=== PATIENT | female | born 1990 | race Caucasian/White ===

== ENCOUNTER 2020-02-11 18:04 | Emergency (ER) | payer MEDICAID ==
[2020-02-11] MEDS ORDERED: PRENATAL MULTI1 EAC3 PO (18:18)
[2020-02-11 19:17] VITALS: BP 146/82
== END 2020-02-11 19:28 | disposition short-term general hospital (02) ==
LOC: ED 18:04
DX: O9A.213 Injury, poisoning and certain other consequences of external causes complicating pregnancy, third trimester (principal); R11.0 Nausea; Z3A.30 30 weeks gestation of pregnancy; V43.52XA Car driver injured in collision with other type car in traffic accident, initial encounter; W22.11XA Striking against or struck by driver side automobile airbag, initial encounter

== ENCOUNTER 2021-12-02 14:25 | Emergency (ER) | payer MEDICAID ==
[~2021-12-02] VITALS: Ht 180.3 cm; Wt 101.4 kg
[~2021-12-02 14:25] MED LIST: PRENATAL MULTI1 EAC3 PO
[2021-12-02] MEDS ORDERED: CORTISPORIN OTI10 ML OT (14:47)
[2021-12-02 16:14] VITALS: BP 126/78
== END 2021-12-02 16:14 | disposition home or self-care (01) ==
LOC: ED 14:25
DX: H60.91 Unspecified otitis externa, right ear (principal); Z28.310 Unvaccinated for COVID-19
CPT/HCPCS: J1885

== ENCOUNTER → 2023-09-18 | Outpatient (CLI) | payer SELFPAY ==
[~2023-09-18] MED LIST changes: +CORTISPORIN OTI10 ML OT
[2023-11-07 10:38] LABS: BASO # 0.05 K/mm3 (0.02-0.10); EOS # 0.35 K/mm3 (0.04-0.40); EOS % 4.6 % (1.0-5.0); HEMATOCRIT 47.5 % (37.0-47.0); HEMOGLOBIN 16.2 g/dL (12.5-16.0); LYMPH# 2.49 K/mm3 (1.50-4.00); MEAN CELL VOLUME 87 fl (78-100); MEAN CORPUSCULAR HEMOGLOBIN 30 pg (27-31); MEAN CORPUSCULAR HGB CONC 34 g/dL (33-37); MONO # 0.54 K/mm3 (0.20-0.80); NEU # 4.14 K/mm3 (1.40-6.50); PLATELET COUNT 309 K/mm3 (130-400); RED BLOOD COUNT 5.45 M/mm3 (4.10-5.30); RED CELL DISTRIBUTION WIDTH 11.7 % (11.5-14.5); WHITE BLOOD COUNT 7.6 K/mm3 (4.8-10.8)
[2023-11-07 11:30] LABS: ALBUMIN 4.5 g/dL (3.5-5.0); CALCIUM 9.6 mg/dL (8.3-10.5); TOTAL BILIRUBIN 0.6 mg/dL (0.2-1.2); TOTAL PROTEIN 7.6 g/dL (6.4-8.3)
== END ==
LOC: LAB 16:13
PROVIDERS: Physician Assistant
DX: Z13.220 Encounter for screening for lipoid disorders (principal); Z13.29 Encounter for screening for other suspected endocrine disorder; K90.9 Intestinal malabsorption, unspecified; Z83.3 Family history of diabetes mellitus